=== PATIENT | female | born 1940 | race Caucasian/White ===

== ENCOUNTER → 2022-01-17 | Outpatient (CLI) | payer MEDICARE ==
[~2022-01-17] MED LIST: B-12500 MC1; CALCIUM + D SO1 EACH; CYCL10 PO; FOLI400; Ocuvite Lutein1 EACH
== END | disposition home or self-care (01) ==
LOC: PLD 11:03 → LAB SHORT 11:03
DX: D48.5 Neoplasm of uncertain behavior of skin (principal)
CPT/HCPCS: 88305

== ENCOUNTER → 2024-04-27 | Outpatient (CLI) | payer OTHER | END | disposition home or self-care (01) | LOC: LAB 10:42 → LAB SHORT 10:42 | DX: N39.0 Urinary tract infection, site not specified (principal) | CPT/HCPCS: 87086 ==

== ENCOUNTER 2024-12-15 08:05 | Day surgery (SDC) | payer OTHER ==
[~2024-12-15] VITALS: Ht 167.6 cm; Wt 85.8 kg
[~2024-12-15 08:05] MED LIST changes: +CELECOXIB50 MG PO; +LOSA50 PO; +NS 500 ML IV ONE
[2024-12-15] MEDS ORDERED: Acetaminophen650 M1 PO (08:46)
[2024-12-15] MEDS ORDERED: NS 500 ML IV ONE (09:01)
[2024-12-15] MEDS ORDERED: Midazolam HCl 1MG / ML 2ML Vial ONE (09:32)
[2024-12-15 10:00] VITALS: BP 151/73
== END 2024-12-15 10:17 | disposition home or self-care (01) ==
LOC: ORSCSDS 08:05
PROVIDERS: Orthopaedic Surgery
PROC: 01N54ZZ Release Median Nerve, Percutaneous Endoscopic Approach (ICD-10-PCS; principal; 2024-12-15 09:30)
DX: G56.03 Carpal tunnel syndrome, bilateral upper limbs (principal); I73.00 Raynaud's syndrome without gangrene; I10 Essential (primary) hypertension; Z79.899 Other long term (current) drug therapy; Z87.891 Personal history of nicotine dependence
CPT/HCPCS: J2250; J7040

== ENCOUNTER 2025-01-12 07:33 | Day surgery (SDC) | payer OTHER ==
[~2025-01-12] VITALS: Ht 167.6 cm; Wt 86.2 kg
[~2025-01-12 07:33] MED LIST changes: +Acetaminophen650 M1 PO; -NS 500 ML IV ONE; +propofoL 20 ML IV ONE
[2025-01-12] MEDS ORDERED: NS 500 ML IV ONE ×2 (07:58→08:16)
--- NOTE | 2025-01-12 08:25 | NUR ---
01/12/25 0825 [facility] 0820: TIMEOUT BY MARQUITA AND LOCAL INJECTION BY DR MENDEZ OF 9 CC OF MIX OF 9 CC LIDOCAINE 1% WITH EPI 1:100,000 WITH 1 CC SODIUM BICARB. PT TOLERATED WELL.
[2025-01-12 09:04] VITALS: BP 131/62
--- NOTE | 2025-01-12 09:26 | NUR ---
01/12/25 0926 Amarilis Schmid D/C INSTRUCTIONS GIVEN TO PT, UNDERSTANDING VERBALIZED. PT DENIES PAIN/NAUSEA, VSS, ON RA. PT HAS ALL BELONGINGS W/ HER, INCLUDING D/C PACKET. PT WHEELED TO PRIVATE VEHICLE WHERE SHE WILL BE DRIVEN HOME BY FRIEND. STEADY GAIT NOTED UPON AMBULATION. NO VISIBLE SIGNS OF DISTRESS NOTED.
== END 2025-01-12 09:23 | disposition home or self-care (01) ==
LOC: ORSCSDS 07:33
PROVIDERS: Orthopaedic Surgery
PROC: 01N54ZZ Release Median Nerve, Percutaneous Endoscopic Approach (ICD-10-PCS; principal; 2025-01-12 09:00)
DX: G56.01 Carpal tunnel syndrome, right upper limb (principal); I10 Essential (primary) hypertension; Z87.891 Personal history of nicotine dependence; E66.9 Obesity, unspecified; Z68.30 Body mass index [BMI] 30.0-30.9, adult; Z79.899 Other long term (current) drug therapy
CPT/HCPCS: J2704; J7040

== ENCOUNTER 2025-09-25 11:49 | Emergency (ER) | payer OTHER ==
[~2025-09-25] VITALS: Ht 167.6 cm; Wt 81.7 kg
[~2025-09-25 11:49] MED LIST changes: -propofoL 20 ML IV ONE
[2025-09-25 12:35] LABS: BASOPHILS ABSOLUTE AUTO 0.05 K/mm3 (0.00-0.23); BASOPHILS PERCENT AUTO 1 % (0-2); EOSINOPHILS ABSOLUTE AUTO 0.12 K/mm3 (0.00-0.68); EOSINOPHILS PERCENT AUTO 2 % (0-6); Hematocrit 42.5 % (33.0-51.0); Hemoglobin 14.4 g/dL (11.5-16.0); IMMATURE GRAN ABSOLUTE AUTO 0.01 K/mm3 (0.00-0.10); IMMATURE GRAN PERCENT AUTO 0 % (0-1); LYMPHOCYTES ABSOLUTE AUTO 1.12 K/mm3 (0.84-5.20); LYMPHOCYTES PERCENT AUTO 19 % (21-46); MONOCYTES ABSOLUTE AUTO 0.73 K/mm3 (0.16-1.47); MONOCYTES PERCENT AUTO 12 % (4-13); Mean Corpuscular HGB Conc 33.9 g/dL (31.5-36.5); Mean Corpuscular Volume 95 fL (80-100); NEUTROPHILS ABSOLUTE AUTO 3.95 K/mm3 (1.96-9.15); NEUTROPHILS PERCENT AUTO 66 % (41-73); NRBC ABSOLUTE 0.00 K/mm3 (0.00-0.02); NRBC Auto 0.0 /100 WBC (0.0-0.2); Platelet Count 189 K/mm3 (150-400); RDW Coefficient Variation 13.0 % (11.7-14.2); RDW Standard Deviation 46.0 fL (35.1-46.3)
[2025-09-25 13:08] LABS: Alanine Aminotransfer (ALT/SGP 24.0 U/L (12-78); Albumin, Blood 3.9 g/dL (3.4-5.0); Albumin/Globulin Ratio 1.1 (0.8-1.8); Anion Gap 10.0 mmol/L (3-11); Aspartate Aminotrans (AST/SGOT 23.0 U/L (12-37); Bilirubin, Total 0.5 mg/dL (0.1-1.0); Blood Urea Nitrogen 22.0 mg/dL (8-24); CO2, Blood 24.0 mmol/L (21-32); Calcium, Blood 9.4 mg/dL (8.5-10.1); Chloride, Blood 103.0 mmol/L (98-108); Creatinine, Blood 0.61 mg/dL (0.40-1.00); Globulin, Blood 3.5 g/dL (2.2-4.0); Glucose, Blood 117.0 mg/dL (70-99); Potassium, Blood 4.2 mmol/L (3.5-5.5); Sodium, Blood 133.0 mmol/L (136-145); Total Protein, Blood 7.4 g/dL (6.4-8.2)
[2025-09-25 19:30] VITALS: BP 182/82
== END 2025-09-25 19:33 | disposition home or self-care (01) ==
LOC: ER 11:49
PROVIDERS: Physician Assistant
DX: I10 Essential (primary) hypertension (principal); E87.1 Hypo-osmolality and hyponatremia; H54.62 Unqualified visual loss, left eye, normal vision right eye; Z87.891 Personal history of nicotine dependence; Z79.899 Other long term (current) drug therapy; Z88.5 Allergy status to narcotic agent
CPT/HCPCS: 70450; 70496; 70498; 70551; 80053; 84484; 85025; 93005; 93010; 99284-25; Q9967